=== PATIENT | male | born 1955 | race African-American/Black ===

== ENCOUNTER 2018-07-23 14:56 | Observation (INO) ==
[2018-07-23] MEDS ORDERED: DEXTROSE 50% 25 GM/50 ML SYRINGE IV PRN (18:12)
[2018-07-23] MEDS ORDERED: ONDANSETRON 4 MG/2 ML VIAL IV PRN (18:12)
[2018-07-23] MEDS ORDERED: ACETAMINOPHEN 325 MG TABLET PO PRN (18:12)
[2018-07-23] MEDS ORDERED: GLUCAGON 1 MG VIAL IM PRN (18:12)
[2018-07-23] MEDS ORDERED: [UNRECOGNIZED DRUG - OTHER] PO PRN (18:16)
[2018-07-23] MEDS ORDERED: ACETAMIN PO PRN (18:16)
[2018-07-23] MEDS ORDERED: SODIUM CHLORIDE 0.45% 1,000 ML IV SCH (18:30)
[2018-07-23] MEDS: INSULIN REGULAR 100 UNIT/ML SUBCUT SCH (21:08)
[2018-07-23] MEDS: FAMOTIDINE 20 MG TABLET PO SCH (21:08)
[2018-07-23] MEDS: CARVEDILOL 3.125 MG TABLET PO SCH (21:08)
[2018-07-23] MEDS: ENOXAPARIN 40 MG/0.4 ML SYRINGE SUBCUT SCH (21:08)
[2018-07-23] MEDS: SIMVASTATIN 20 MG TABLET PO SCH (21:08)
[2018-07-24 03:42] LABS: Basophils % 0.3 % (0.0-0.8); Eosinophils # 0.2 10*3/uL (0.0-0.87); Eosinophils % 2.6 % (0.00-10.9); Hematocrit 36.8 VOL% (42.0-52.0); Hemoglobin 12.1 GM/DL (14.0-18.0); Immature Granulocytes % 0.1 %; Immature Granulocytes Absolute 0.01 #; Lymphocytes # 2.5 10*3/uL (1.4-4.0); Lymphocytes % 33.8 % (21.2-54.2); Mean Corpuscular HGB Conc 32.9 GM/DL (32-36); Mean Corpuscular Volume 101.9 FL (87-102); Mean Platelet Volume 10.9 FL (9.6-12.0); Monocytes % 12.2 % (1.7-12.7); Platelet Count 191 T/CUMM (130-400); Red Blood Count 3.61 MC/CUMM (3.8-5.5); Red Cell Distribution Width 11.9 % (9.3-17.3); White Blood Count 7.5 T/CUMM (4-12)
[2018-07-24 04:08] LABS: Calcium 8.1 MG/DL (8.5-10.1); Osmolality,Calculated 283.3 MOS/KG (273-304); Risk Ratio 2.28; VLDL CHOLESTEROL 15.8 MG/DL
[2018-07-24] MEDS: INSULIN REGULAR 100 UNIT/ML SUBCUT SCH ×4 (08:18→20:51)
[2018-07-24] MEDS: CARVEDILOL 3.125 MG TABLET PO SCH ×2 (08:19→20:50)
[2018-07-24] MEDS: FUROSEMIDE 20 MG TABLET PO SCH (08:19)
[2018-07-24] MEDS: PANTOPRAZOLE 40 MG TABLET PO SCH (08:19)
[2018-07-24] MEDS: ASPIRIN CHEW 81 MG TABLET PO SCH (08:19)
[2018-07-24] MEDS: CLOPIDOGREL 75 MG TABLET PO SCH (08:19)
[2018-07-24] MEDS: FAMOTIDINE 20 MG TABLET PO SCH ×2 (08:19→20:50)
[2018-07-24] MEDS ORDERED: PANTOPRAZOLE 40 MG TABLET PO SCH (09:00)
[2018-07-24] MEDS ORDERED: PARoxetine 20 MG TABLET PO SCH (12:00)
[2018-07-24 12:27] LABS: Apearance,Urine CLEAR (Clear); Bilirubin,Urine Negative (Negative); Blood, Urine Small mg/dL (Negative); Glucose,Urine (UA) Negative (Negative); Ketones,Urine Negative (Negative); Mucus,Urine Occasional /LPF (Occasional); Nitrite,Urine Negative (Negative); Protein,Urine Negative; RBC,Urine 1 /HPF (0-4); Urine Color Yellow (Yellow); Urine Specific Gravity 1.012 (1.001-1.035); Urine Urobilinogen < 2.0 EU/DL (0.2-1.0); WBC,Urine <1 /HPF (0-6)
[2018-07-24 12:33] LABS: Barbiturates Screen,Urine Negative (Negative); Benzodiazepines Screen,Urine Negative (Negative); Cannabinoid Screen,Urine Negative (Negative); Opiate Screen,Urine Negative (Negative); Phencyclidine Screen,Urine Negative (Negative)
[2018-07-24] MEDS: ENOXAPARIN 40 MG/0.4 ML SYRINGE SUBCUT SCH (20:50)
[2018-07-24] MEDS: SIMVASTATIN 20 MG TABLET PO SCH (20:50)
[2018-07-25 04:40] LABS: Basophils % 0.1 % (0.0-0.8); Eosinophils # 0.2 10*3/uL (0.0-0.87); Eosinophils % 3.1 % (0.00-10.9); Hematocrit 39.8 VOL% (42.0-52.0); Hemoglobin 13.1 GM/DL (14.0-18.0); Immature Granulocytes % 0.3 %; Immature Granulocytes Absolute 0.02 #; Lymphocytes # 2.2 10*3/uL (1.4-4.0); Lymphocytes % 32.1 % (21.2-54.2); Mean Corpuscular HGB Conc 32.9 GM/DL (32-36); Mean Platelet Volume 10.6 FL (9.6-12.0); Neutrophils % 51.4 % (38.7-73.9); Platelet Count 198 T/CUMM (130-400); Red Blood Count 3.94 MC/CUMM (3.8-5.5); Red Cell Distribution Width 11.7 % (9.3-17.3); White Blood Count 6.8 T/CUMM (4-12)
[2018-07-25 04:47] LABS: Calcium 8.8 MG/DL (8.5-10.1); Osmolality,Calculated 281.3 MOS/KG (273-304)
[2018-07-25] MEDS: INSULIN REGULAR 100 UNIT/ML SUBCUT SCH ×2 (09:03→11:40)
[2018-07-25] MEDS: PANTOPRAZOLE 40 MG TABLET PO SCH (09:04)
[2018-07-25] MEDS: CARVEDILOL 3.125 MG TABLET PO SCH (09:04)
[2018-07-25] MEDS: ASPIRIN CHEW 81 MG TABLET PO SCH (09:04)
[2018-07-25] MEDS: FUROSEMIDE 20 MG TABLET PO SCH (09:04)
[2018-07-25] MEDS: CLOPIDOGREL 75 MG TABLET PO SCH (09:04)
[2018-07-25] MEDS: FAMOTIDINE 20 MG TABLET PO SCH (09:05)
[2018-07-25 11:49] VITALS: BP 121/81
== END 2018-07-25 12:20 | disposition home or self-care (01) ==
LOC: N.TELES 17:08 → SUATTDRO 17:08 → INTOOBSV 17:08
PROVIDERS: ADMIT Internal Medicine; ATTEND Family Medicine

== ENCOUNTER 2018-09-04 14:25 | Inpatient (IN) ==
[2018-09-04] MEDS ORDERED: NALOXONE 0.4 MG/ML VIAL ONE (15:11)
[2018-09-04] MEDS ORDERED: NALOXONE 0.4 MG/ML VIAL IV STA (15:15)
[2018-09-04 15:37] LABS: Basophils % 0.2 % (0.0-0.8); Eosinophils % 0.3 % (0.00-10.9); Hemoglobin 10.7 GM/DL (14.0-18.0); Immature Granulocytes % 0.8 %; Immature Granulocytes Absolute 0.08 #; Lymphocytes # 1.7 10*3/uL (1.4-4.0); Lymphocytes % 16.7 % (21.2-54.2); Mean Corpuscular HGB Conc 30.6 GM/DL (32-36); Mean Corpuscular Volume 100.3 FL (87-102); Mean Platelet Volume 10.1 FL (9.6-12.0); Monocytes % 13.4 % (1.7-12.7); NRBC # 0.11 10*3/uL; Neutrophils % 68.6 % (38.7-73.9); Platelet Count 214 T/CUMM (130-400); Red Blood Count 3.49 MC/CUMM (3.8-5.5); Red Cell Distribution Width 13.6 % (9.3-17.3); White Blood Count 10.2 T/CUMM (4-12)
[2018-09-04 15:46] LABS: Partial Thromboplastin Time 33.8 SECS (0-40)
[2018-09-04 15:51] LABS: INR 2.2
[2018-09-04 16:19] LABS: Albumin 3.7 G/DL (3.4-5.0); Bilirubin,Total 3.2 MG/DL (0.2-1.0); Calcium 8.9 MG/DL (8.5-10.1); Osmolality,Calculated 284.8 MOS/KG (273-304); Total Protein 6.7 G/DL (6.4-8.3)
[2018-09-04] MEDS ORDERED: FUROSEMIDE 40 MG/4 ML VIAL IV ONE (17:22)
[2018-09-04 17:50] LABS: Apearance,Urine CLEAR (Clear); Bilirubin,Urine Negative (Negative); Blood, Urine Negative (Negative); Glucose,Urine (UA) Negative (Negative); Hyaline Casts,Urine 12 /LPF (0-3); Ketones,Urine 5 mg/dL (Negative); Mucus,Urine Occasional /LPF (Occasional); Nitrite,Urine Negative (Negative); Protein,Urine 30 MG/DL; RBC,Urine 1 /HPF (0-4); Squamous Epithelial Cell,Urine Occasional /HPF (0-10); Urine Color Dark yellow (Yellow); WBC,Urine <1 /HPF (0-6)
[2018-09-04] MEDS ORDERED: DIGOXIN 0.5 MG/2 ML AMP IV STA (18:01)
[2018-09-04] MEDS: RIVAROXABAN 20 MG TABLET PO SCH (18:35)
[2018-09-04 18:44] LABS: Barbiturates Screen,Urine Negative (Negative); Benzodiazepines Screen,Urine Negative (Negative); Cannabinoid Screen,Urine Negative (Negative); Opiate Screen,Urine Negative (Negative); Phencyclidine Screen,Urine Negative (Negative)
[2018-09-04] MEDS: DILTIAZEM 60 MG TABLET PO SCH (21:44)
[2018-09-04] MEDS: FAMOTIDINE 20 MG TABLET PO SCH (21:45)
[2018-09-04] MEDS: CARVEDILOL 3.125 MG TABLET PO SCH (21:45)
[2018-09-04] MEDS: SIMVASTATIN 10 MG TABLET PO SCH (21:45)
[2018-09-05 04:29] LABS: ABG Base Excess 1.6 MMOL/L (-2.5-2.5); ABG HCO3 25.1 MMOL/L (20-26); ABG PCO2 35.5 MM HG (35-48); ABG PH 7.468 (7.35-7.45); ABG PO2 89.8 MM HG (80-95); ABG TCO2 26.2 MMOL/L (23-27); Allen Test Positive
[2018-09-05 05:04] LABS: Basophils % 0.2 % (0.0-0.8); Eosinophils # 0.1 10*3/uL (0.0-0.87); Eosinophils % 0.8 % (0.00-10.9); Hematocrit 34.3 VOL% (42.0-52.0); Hemoglobin 10.6 GM/DL (14.0-18.0); Immature Granulocytes % 0.6 %; Immature Granulocytes Absolute 0.06 #; Lymphocytes # 1.9 10*3/uL (1.4-4.0); Mean Corpuscular HGB Conc 30.9 GM/DL (32-36); Mean Corpuscular Volume 99.1 FL (87-102); Mean Platelet Volume 10.4 FL (9.6-12.0); Monocytes % 12.9 % (1.7-12.7); Neutrophils % 66.5 % (38.7-73.9); Platelet Count 186 T/CUMM (130-400); Red Blood Count 3.46 MC/CUMM (3.8-5.5); Red Cell Distribution Width 13.4 % (9.3-17.3); White Blood Count 9.8 T/CUMM (4-12)
[2018-09-05 05:52] LABS: Albumin 3.1 G/DL (3.4-5.0); Bilirubin,Total 2.6 MG/DL (0.2-1.0); Calcium 8.1 MG/DL (8.5-10.1); Osmolality,Calculated 279.1 MOS/KG (273-304); Total Protein 6.5 G/DL (6.4-8.3)
[2018-09-05 05:53] LABS: Troponin I 2.84 NG/ML (0.00-0.045)
[2018-09-05] MEDS: DILTIAZEM 60 MG TABLET PO SCH (09:24)
[2018-09-05] MEDS: CARVEDILOL 3.125 MG TABLET PO SCH ×2 (09:24→20:34)
[2018-09-05] MEDS: CLOPIDOGREL 75 MG TABLET PO SCH (09:25)
[2018-09-05] MEDS: FAMOTIDINE 20 MG TABLET PO SCH ×2 (09:25→20:33)
[2018-09-05] MEDS: FUROSEMIDE 40 MG/4 ML VIAL IV SCH (09:25)
[2018-09-05] MEDS: ASPIRIN CHEW 81 MG TABLET PO SCH (09:25)
[2018-09-05] MEDS ORDERED: DIGOXIN 0.5 MG/2 ML AMP IV ONE (11:35)
[2018-09-05] MEDS: ALBUTEROL 1.25 MG/3 ML NEB RESP TX SCH ×2 (13:35→19:20)
[2018-09-05] MEDS: DIGOXIN 0.125 MG TABLET PO SCH (13:51)
[2018-09-05] MEDS: RIVAROXABAN 20 MG TABLET PO SCH (17:56)
[2018-09-05] MEDS: SIMVASTATIN 10 MG TABLET PO SCH (20:33)
[2018-09-06] MEDS: ALBUTEROL 1.25 MG/3 ML NEB RESP TX SCH ×4 (01:24→20:13)
[2018-09-06] MEDS: DILTIAZEM CD 120 MG CAPSULE PO SCH ×2 (01:51→09:40)
[2018-09-06] MEDS ORDERED: MAGNESIUM SULF RIDER 1 GM in PREMIX 1 EACH IV ONE (03:00)
[2018-09-06 05:44] LABS: Basophils % 0.2 % (0.0-0.8); Eosinophils # 0.1 10*3/uL (0.0-0.87); Eosinophils % 1.4 % (0.00-10.9); Hematocrit 33.9 VOL% (42.0-52.0); Hemoglobin 10.6 GM/DL (14.0-18.0); Immature Granulocytes % 0.5 %; Immature Granulocytes Absolute 0.04 #; Lymphocytes # 2.1 10*3/uL (1.4-4.0); Lymphocytes % 25.4 % (21.2-54.2); Mean Corpuscular HGB Conc 31.3 GM/DL (32-36); Mean Platelet Volume 10.3 FL (9.6-12.0); NRBC # 0.05 10*3/uL; Neutrophils % 62.5 % (38.7-73.9); Platelet Count 198 T/CUMM (130-400); Red Blood Count 3.46 MC/CUMM (3.8-5.5); Red Cell Distribution Width 13.3 % (9.3-17.3); White Blood Count 8.1 T/CUMM (4-12)
[2018-09-06 06:20] LABS: Albumin 2.9 G/DL (3.4-5.0); Bilirubin,Total 1.8 MG/DL (0.2-1.0); Calcium 8.1 MG/DL (8.5-10.1); Total Protein 6.2 G/DL (6.4-8.3)
[2018-09-06] MEDS: POTASSIUM CHLORIDE 20 MEQ TABLET PO SCH ×3 (09:40→17:37)
[2018-09-06] MEDS: ASPIRIN CHEW 81 MG TABLET PO SCH (09:40)
[2018-09-06] MEDS: CLOPIDOGREL 75 MG TABLET PO SCH (09:40)
[2018-09-06] MEDS: FAMOTIDINE 20 MG TABLET PO SCH ×2 (09:40→22:51)
[2018-09-06] MEDS: CARVEDILOL 3.125 MG TABLET PO SCH (09:40)
[2018-09-06] MEDS: FUROSEMIDE 40 MG/4 ML VIAL IV SCH (09:42)
[2018-09-06] MEDS ORDERED: CARVEDILOL 3.125 MG TABLET PO SCH (12:15)
[2018-09-06] MEDS: DIGOXIN 0.125 MG TABLET PO SCH (12:29)
[2018-09-06] MEDS: PARoxetine 20 MG TABLET PO SCH (12:29)
[2018-09-06] MEDS: CARVEDILOL 6.25 MG TABLET PO SCH ×2 (12:35→22:51)
[2018-09-06] MEDS: methIMAzole 10 MG TABLET PO SCH ×2 (17:36→22:51)
[2018-09-06] MEDS: RIVAROXABAN 20 MG TABLET PO SCH (17:37)
[2018-09-06] MEDS: SIMVASTATIN 10 MG TABLET PO SCH (22:51)
[2018-09-07] MEDS: ALBUTEROL 1.25 MG/3 ML NEB RESP TX SCH ×4 (00:35→19:02)
[2018-09-07] MEDS: ONDANSETRON 4 MG/2 ML VIAL IV PRN ×2 (01:25→23:20)
[2018-09-07 07:17] LABS: Basophils % 0.3 % (0.0-0.8); Eosinophils # 0.1 10*3/uL (0.0-0.87); Eosinophils % 1.5 % (0.00-10.9); Hematocrit 36.1 VOL% (42.0-52.0); Immature Granulocytes % 0.7 %; Immature Granulocytes Absolute 0.05 #; Lymphocytes # 2.2 10*3/uL (1.4-4.0); Lymphocytes % 29.4 % (21.2-54.2); Mean Corpuscular HGB Conc 30.5 GM/DL (32-36); Mean Corpuscular Volume 98.4 FL (87-102); Mean Platelet Volume 10.7 FL (9.6-12.0); NRBC # 0.04 10*3/uL; Neutrophils % 58.1 % (38.7-73.9); Platelet Count 210 T/CUMM (130-400); Red Blood Count 3.67 MC/CUMM (3.8-5.5); Red Cell Distribution Width 13.3 % (9.3-17.3); White Blood Count 7.5 T/CUMM (4-12)
[2018-09-07 08:41] LABS: Hepatitis B Core IgM Quant < 0.05 Index; Hepatitis B Surface Ag Quant < 0.10 Index; Hepatitis B Surface Ag Result Negative (Negative); Hepatitis C Virus Ab Quant 0.12 Index; Hepatitis C Virus Ab Result Negative (Negative)
[2018-09-07 08:56] LABS: Calcium 8.6 MG/DL (8.5-10.1)
[2018-09-07] MEDS: FUROSEMIDE 40 MG/4 ML VIAL IV SCH (09:43)
[2018-09-07] MEDS: FAMOTIDINE 20 MG TABLET PO SCH ×2 (10:13→20:38)
[2018-09-07] MEDS: ASPIRIN CHEW 81 MG TABLET PO SCH (10:13)
[2018-09-07] MEDS: CARVEDILOL 6.25 MG TABLET PO SCH ×2 (10:13→20:38)
[2018-09-07] MEDS: CLOPIDOGREL 75 MG TABLET PO SCH (10:14)
[2018-09-07] MEDS: methIMAzole 10 MG TABLET PO SCH ×3 (10:14→20:37)
[2018-09-07] MEDS: DIGOXIN 0.125 MG TABLET PO SCH (12:37)
[2018-09-07] MEDS: PARoxetine 20 MG TABLET PO SCH (12:38)
[2018-09-07] MEDS: RIVAROXABAN 20 MG TABLET PO SCH (16:33)
[2018-09-07] MEDS: SIMVASTATIN 10 MG TABLET PO SCH (20:37)
[2018-09-08] MEDS: ALBUTEROL 1.25 MG/3 ML NEB RESP TX SCH ×4 (00:48→21:03)
[2018-09-08 05:15] LABS: Basophils % 0.5 % (0.0-0.8); Eosinophils # 0.2 10*3/uL (0.0-0.87); Eosinophils % 2.7 % (0.00-10.9); Hemoglobin 10.9 GM/DL (14.0-18.0); Immature Granulocytes % 0.4 %; Immature Granulocytes Absolute 0.03 #; Lymphocytes # 2.4 10*3/uL (1.4-4.0); Lymphocytes % 31.2 % (21.2-54.2); Mean Corpuscular HGB Conc 31.1 GM/DL (32-36); Mean Corpuscular Volume 97.2 FL (87-102); Mean Platelet Volume 10.7 FL (9.6-12.0); Monocytes % 10.2 % (1.7-12.7); NRBC # 0.03 10*3/uL; Platelet Count 211 T/CUMM (130-400); Red Cell Distribution Width 13.2 % (9.3-17.3); White Blood Count 7.7 T/CUMM (4-12)
[2018-09-08 05:44] LABS: Bilirubin,Total 1.6 MG/DL (0.2-1.0); Calcium 8.6 MG/DL (8.5-10.1); Osmolality,Calculated 278.7 MOS/KG (273-304); Total Protein 6.7 G/DL (6.4-8.3)
[2018-09-08] MEDS: ASPIRIN CHEW 81 MG TABLET PO SCH (08:46)
[2018-09-08] MEDS: methIMAzole 10 MG TABLET PO SCH ×3 (08:46→21:21)
[2018-09-08] MEDS: FAMOTIDINE 20 MG TABLET PO SCH ×2 (08:47→21:21)
[2018-09-08] MEDS: CARVEDILOL 6.25 MG TABLET PO SCH ×2 (08:47→21:21)
[2018-09-08] MEDS: FUROSEMIDE 40 MG/4 ML VIAL IV SCH (08:48)
[2018-09-08] MEDS: PARoxetine 20 MG TABLET PO SCH (12:19)
[2018-09-08] MEDS: DIGOXIN 0.125 MG TABLET PO SCH (13:39)
[2018-09-08] MEDS: RIVAROXABAN 20 MG TABLET PO SCH (16:39)
[2018-09-08] MEDS: SIMVASTATIN 10 MG TABLET PO SCH (21:21)
[2018-09-08] MEDS: ZALEPLON 5 MG CAPSULE PO PRN (23:47)
[2018-09-09] MEDS: ALBUTEROL 1.25 MG/3 ML NEB RESP TX SCH ×4 (01:44→19:42)
[2018-09-09] MEDS: ASPIRIN CHEW 81 MG TABLET PO SCH (09:28)
[2018-09-09] MEDS: CARVEDILOL 6.25 MG TABLET PO SCH ×2 (09:28→21:12)
[2018-09-09] MEDS: methIMAzole 10 MG TABLET PO SCH ×3 (09:28→23:00)
[2018-09-09] MEDS: FAMOTIDINE 20 MG TABLET PO SCH ×2 (09:28→21:13)
[2018-09-09] MEDS: PANTOPRAZOLE 40 MG TABLET PO SCH (09:30)
[2018-09-09] MEDS: FUROSEMIDE 40 MG/4 ML VIAL IV SCH (09:32)
[2018-09-09] MEDS: ASCORBIC ACID 500 MG TABLET PO SCH ×2 (12:55→21:13)
[2018-09-09] MEDS: DIGOXIN 0.125 MG TABLET PO SCH (12:56)
[2018-09-09] MEDS: PARoxetine 20 MG TABLET PO SCH (12:56)
[2018-09-09] MEDS: FUROSEMIDE 40 MG TABLET PO SCH (15:03)
[2018-09-09] MEDS: RIVAROXABAN 20 MG TABLET PO SCH (17:52)
[2018-09-09] MEDS: SIMVASTATIN 10 MG TABLET PO SCH (21:13)
[2018-09-09] MEDS: ZALEPLON 5 MG CAPSULE PO PRN (23:00)
[2018-09-10] MEDS: ALBUTEROL 1.25 MG/3 ML NEB RESP TX SCH ×3 (00:37→13:00)
[2018-09-10 07:53] LABS: Basophils % 0.3 % (0.0-0.8); Eosinophils # 0.3 10*3/uL (0.0-0.87); Eosinophils % 3.7 % (0.00-10.9); Hematocrit 37.2 VOL% (42.0-52.0); Hemoglobin 11.3 GM/DL (14.0-18.0); Immature Granulocytes % 0.3 %; Immature Granulocytes Absolute 0.02 #; Lymphocytes # 2.6 10*3/uL (1.4-4.0); Lymphocytes % 36.6 % (21.2-54.2); Mean Corpuscular HGB Conc 30.4 GM/DL (32-36); Mean Corpuscular Volume 97.6 FL (87-102); Mean Platelet Volume 9.9 FL (9.6-12.0); Monocytes % 9.8 % (1.7-12.7); Neutrophils % 49.3 % (38.7-73.9); Platelet Count 234 T/CUMM (130-400); Red Blood Count 3.81 MC/CUMM (3.8-5.5); Red Cell Distribution Width 13.5 % (9.3-17.3)
[2018-09-10 08:29] LABS: Calcium 8.7 MG/DL (8.5-10.1); Osmolality,Calculated 276.8 MOS/KG (273-304)
[2018-09-10] MEDS: ASPIRIN CHEW 81 MG TABLET PO SCH (09:40)
[2018-09-10] MEDS: FUROSEMIDE 40 MG TABLET PO SCH (09:40)
[2018-09-10] MEDS: FAMOTIDINE 20 MG TABLET PO SCH (09:41)
[2018-09-10] MEDS: CARVEDILOL 6.25 MG TABLET PO SCH (09:41)
[2018-09-10] MEDS: ASCORBIC ACID 500 MG TABLET PO SCH (09:41)
[2018-09-10] MEDS: PANTOPRAZOLE 40 MG TABLET PO SCH (09:41)
[2018-09-10] MEDS: methIMAzole 10 MG TABLET PO SCH (09:41)
[2018-09-10 12:17] VITALS: BP 98/46
[2018-09-10] MEDS: DIGOXIN 0.125 MG TABLET PO SCH (13:12)
[2018-09-10] MEDS: PARoxetine 20 MG TABLET PO SCH (13:13)
== END 2018-09-10 13:40 | disposition swing bed (61) | DRG 292 ==
LOC: EDUNIT# → EDBD → N.ED 14:25 → N.EDINP 17:05 → SUATTDRO 17:05 → N.ICU 17:52 → N.TELEN 09-05 18:09
PROVIDERS: ADMIT Internal Medicine; ATTEND Internal Medicine

== ENCOUNTER 2018-10-04 20:10 | Inpatient (IN) ==
[2018-10-04 21:30] LABS: Basophils % 0.2 % (0.0-0.8); Hematocrit 29.4 VOL% (42.0-52.0); Hemoglobin 9.1 GM/DL (14.0-18.0); Immature Granulocytes % 1.2 %; Immature Granulocytes Absolute 0.19 #; Lymphocytes # 0.6 10*3/uL (1.4-4.0); Lymphocytes % 3.9 % (21.2-54.2); Mean Corpuscular Volume 90.2 FL (87-102); Mean Platelet Volume 9.9 FL (9.6-12.0); NRBC # 0.05 10*3/uL; Neutrophils % 89.7 % (38.7-73.9); Platelet Count 215 T/CUMM (130-400); Red Blood Count 3.26 MC/CUMM (3.8-5.5); Red Cell Distribution Width 16.8 % (9.3-17.3); White Blood Count 16.5 T/CUMM (4-12)
[2018-10-04 21:49] LABS: Lymphocytes 5 % (20-55); Segmented Neutrophils 90 % (50-85); Total Cells Counted 100
[2018-10-04 21:50] LABS: Anisocytosis 1+; Hypochromasia 1+; Microcytosis 1+; Platelet Estimate Normal; Poikilocytosis 1+; Polychromasia Few
[2018-10-04 21:50] LABS: Albumin 2.9 G/DL (3.4-5.0); Bilirubin,Total 4.7 MG/DL (0.2-1.0); Calcium 7.2 MG/DL (8.5-10.1); Osmolality,Calculated 273.2 MOS/KG (273-304); Total Protein 6.3 G/DL (6.4-8.3)
[2018-10-04] MEDS ORDERED: MAGNESIUM SULF RIDER 2 GM in PREMIX 1 EACH IV STA (22:09)
[2018-10-04] MEDS ORDERED: ASPIRIN CHEW 81 MG TABLET PO STA (22:10)
[2018-10-04] MEDS ORDERED: ONDANSETRON 4 MG/2 ML VIAL IV PRN (23:11)
[2018-10-04] MEDS ORDERED: NICOTINE 21 MG/24 HR PATCH TRANSDERM PRN (23:11)
[2018-10-04] MEDS ORDERED: diphenhydrAMINE CAP 25 MG CAPSULE PO PRN (23:11)
[2018-10-04] MEDS ORDERED: ACETAMINOPHEN 325 MG TABLET PO PRN (23:11)
[2018-10-04] MEDS ORDERED: guaiFENesin/DM ER 600-30 MG TABLET PO PRN (23:11)
[2018-10-04] MEDS ORDERED: POTASSIUM CHLORIDE 20 MEQ TABLET PO PRN (23:11)
[2018-10-04] MEDS ORDERED: MAGNESIUM SULF RIDER 4 GM in PREMIX 1 EACH IV PRN (23:11)
[2018-10-04] MEDS ORDERED: MORPHINE 4 MG/1 ML VIAL IV PRN (23:11)
[2018-10-05] MEDS: HEPARIN DRIP 25,000 UNITS/500 ML PREMIX IV SCH ×2 (01:00→01:15)
[2018-10-05] MEDS ORDERED: SODIUM CHLORIDE 0.9% 1,000 ML IV ONE (01:15)
[2018-10-05 01:36] LABS: Risk Ratio 3.93; Thyroid Stimulating Hormone 0.056 uIU/ml (0.358-3.74)
[2018-10-05] MEDS: MAGNESIUM SULF RIDER 2 GM in PREMIX 1 EACH IV PRN ×2 (02:26→04:15)
[2018-10-05 06:53] VITALS: BP 89/60
[2018-10-05 07:56] LABS: Amorphous Crystals,Urine Occasional /HPF (Few); Apearance,Urine CLOUDY (Clear); Bacteria,Urine Occasional /HPF (Few); Bilirubin,Urine Negative (Negative); Blood, Urine Moderate mg/dL (Negative); Glucose,Urine (UA) Negative (Negative); Hyaline Casts,Urine 8 /LPF (0-3); Ketones,Urine Negative (Negative); Mucus,Urine Occasional /LPF (Occasional); Nitrite,Urine Negative (Negative); Protein,Urine 100 MG/DL; RBC,Urine 22 /HPF (0-4); Squamous Epithelial Cell,Urine Occasional /HPF (0-10); Urine Color Amber (Yellow); Urine Specific Gravity 1.017 (1.001-1.035); WBC,Urine 12 /HPF (0-6)
[2018-10-05] MEDS ORDERED: ALPRAZolam 0.5 MG TABLET PO ONE (08:22)
[2018-10-05] MEDS ORDERED: AMIODARONE INJ 150 MG in DEXTROSE 5% 100 ML IV ONE (08:23)
[2018-10-05] MEDS ORDERED: SUCCINYLCHOLINE 200 MG/10 ML VIAL IV ONE (08:30)
[2018-10-05] MEDS ORDERED: PROPOFOL 200 MG/20 ML VIAL IV ONE ×2 (08:30→08:34)
[2018-10-05] MEDS ORDERED: MORPHINE 4 MG/1 ML VIAL IV ONE ×2 (08:30→08:35)
[2018-10-05] MEDS ORDERED: MIDAZOLAM 2 MG/2 ML VIAL IV ONE (08:30)
[2018-10-05] MEDS ORDERED: SUCCINYLCHOLINE 200 MG/10 ML VIAL ONE (08:34)
[2018-10-05 08:40] LABS: Bilirubin,Total 3.9 MG/DL (0.2-1.0); Calcium 7.3 MG/DL (8.5-10.1); Osmolality,Calculated 273.2 MOS/KG (273-304); Total Protein 6.9 G/DL (6.4-8.3)
[2018-10-05] MEDS ORDERED: AMIODARONE 150 MG/3 ML VIAL ONE (08:40)
[2018-10-05] MEDS ORDERED: SODIUM CHLORIDE 0.9% 250 ML BAG IV ONE (08:40)
[2018-10-05] MEDS ORDERED: SODIUM CHLORIDE 0.9% 500 ML BAG IV ONE (08:40)
[2018-10-05] MEDS ORDERED: EPINEPHrine 1 MG/10 ML SYRINGE ONE (08:40)
[2018-10-05] MEDS ORDERED: PROPOFOL 1,000 MG/100 ML BOTTLE IV ONE (08:42)
[2018-10-05] MEDS ORDERED: PROPOFOL 1,000 MG/100 ML BOTTLE IV SCH (08:51)
[2018-10-05] MEDS ORDERED: MIDAZOLAM 2 MG/2 ML VIAL ONE (08:56)
[2018-10-05] MEDS ORDERED: PANTOPRAZOLE 40 MG TABLET PO SCH (09:00)
[2018-10-05] MEDS ORDERED: AMIODARONE INJ 450 MG in DEXTROSE 5% 241 ML IV SCH ×2 (09:07→17:00)
[2018-10-05] MEDS: DOPamine 800 MG/250 ML PREMIX IV PRN ×3 (09:13→21:36)
[2018-10-05] MEDS ORDERED: SODIUM CHLORIDE 0.9% 500 ML IV ONE (09:17)
[2018-10-05 09:48] LABS: Barbiturates Screen,Urine Negative (Negative); Benzodiazepines Screen,Urine Negative (Negative); Cannabinoid Screen,Urine Negative (Negative); Opiate Screen,Urine Negative (Negative); Phencyclidine Screen,Urine Negative (Negative)
[2018-10-05 13:08] LABS: ABG Base Excess -12.2 MMOL/L (-2.5-2.5); ABG Oxygen Saturation 99.1 % (95-100); ABG PCO2 27.9 MM HG (35-48); ABG PH 7.287 (7.35-7.45); ABG TCO2 12.1 MMOL/L (23-27)
[2018-10-05] MEDS ORDERED: PHENYLEPHRINE DRIP 40 MG/250 ML PREMIX IV PRN (13:30)
[2018-10-05 14:34] LABS: Lymphocytes % 4.7 % (21.2-54.2); NRBC # 0.66 10*3/uL; Red Cell Distribution Width 17.2 % (9.3-17.3)
[2018-10-05 14:54] LABS: Basophils # 0.1 10*3/uL (0.0-0.2); Basophils % 0.3 % (0.0-0.8); Hematocrit 36.6 VOL% (42.0-52.0); Hemoglobin 10.6 GM/DL (14.0-18.0); Immature Granulocytes % 2.5 %; Immature Granulocytes Absolute 0.51 #; Mean Corpuscular Volume 96.8 FL (87-102); Mean Platelet Volume 10.7 FL (9.6-12.0); Monocytes % 6.7 % (1.7-12.7); Neutrophils % 85.8 % (38.7-73.9); Platelet Count 251 T/CUMM (130-400); Red Blood Count 3.78 MC/CUMM (3.8-5.5); White Blood Count 20.8 T/CUMM (4-12)
[2018-10-05 15:02] LABS: Anisocytosis 1+; Band Neutrophils 10 % (0-10); Burr Cells Few; Lymphocytes 6 % (20-55); Nucleated Red Blood Cells 2 (0-5); Segmented Neutrophils 81 % (50-85); Total Cells Counted 100
[2018-10-05 15:03] LABS: Macrocytosis Slight; Platelet Estimate Adequate; Polychromasia Few
[2018-10-05] MEDS ORDERED: AMIODARONE 450 MG/9 ML VIAL IV ONE (16:55)
[2018-10-05] MEDS ORDERED: ATROPINE 1 MG/10 ML SYRINGE IV PRN (23:27)
[2018-10-06] MEDS ORDERED: DOBUTamine 500 MG/250 ML PREMIX IV PRN (00:15)
[2018-10-06] MEDS: NOREPINEPHRINE 16 MG in SODIUM CHLORIDE 0.9% 234 ML IV PRN ×2 (00:20→07:21)
[2018-10-06 00:44] LABS: ABG Base Excess -22.2 MMOL/L (-2.5-2.5); ABG HCO3 8.7 MMOL/L (20-26); ABG Oxygen Saturation 99.1 % (95-100); ABG TCO2 6.2 MMOL/L (23-27)
[2018-10-06 00:46] LABS: ABG PCO2 20.8 MM HG (35-48); ABG PH 7.102 (7.35-7.45)
[2018-10-06] MEDS ORDERED: PHENYLEPHRINE INJ 160 MG in SODIUM CHLORIDE 0.9% 234 ML IV PRN (00:47)
[2018-10-06] MEDS ORDERED: SODIUM BICARBONATE 50 MEQ/50 ML VIAL IV ONE ×2 (00:56→03:24)
[2018-10-06] MEDS: HEPARIN DRIP 25,000 UNITS/500 ML PREMIX IV SCH (02:09)
[2018-10-06 03:08] LABS: ABG HCO3 7.6 MMOL/L (20-26); ABG Oxygen Saturation 97.1 % (95-100); ABG PCO2 21.1 MM HG (35-48); ABG PO2 120.8 MM HG (80-95); ABG TCO2 8.3 MMOL/L (23-27)
[2018-10-06 03:09] LABS: ABG PH 7.176 (7.35-7.45)
[2018-10-06 05:40] LABS: ABG Base Excess -18.2 MMOL/L (-2.5-2.5); ABG HCO3 10.8 MMOL/L (20-26); ABG Oxygen Saturation 95.3 % (95-100); ABG PCO2 25.1 MM HG (35-48); ABG TCO2 8.7 MMOL/L (23-27)
[2018-10-06 05:49] LABS: ABG PH 7.172 (7.35-7.45)
[2018-10-06] MEDS: DOPamine 800 MG/250 ML PREMIX IV PRN (06:01)
[2018-10-06] MEDS ORDERED: MORPHINE 4 MG/1 ML VIAL IV PRN ×2 (06:18→08:05)
[2018-10-06 06:29] LABS: Free T4 (Free Thyroxine) 1.76 NG/DL (0.76-1.46)
[2018-10-06] MEDS ORDERED: LORazepam 2 MG/1 ML VIAL IV PRN (08:05)
[2018-10-06] MEDS ORDERED: MORPHINE 4 MG/1 ML VIAL IV ONE (08:05)
[2018-10-06] MEDS ORDERED: LORazepam 2 MG/1 ML VIAL ONE (08:06)
== END 2018-10-06 08:25 | disposition expired ==
LOC: EDBD 20:10 → EDUNIT# 20:10 → N.ED 20:10 → N.EDINP 23:11 → SUATTDRO 23:11 → N.CC 10-05 00:31
PROVIDERS: ADMIT Internal Medicine; ATTEND Family Medicine